=== PATIENT | male | born 1950 | race Caucasian/White ===

== ENCOUNTER 2021-09-14 09:33 | Emergency (ER) | payer OTHER, MEDICARE, SELFPAY ==
[2021-09-14 09:46] VITALS: BP 131/76; PULSE 82; RESP 18; TEMP 36.6; O2SAT 95; BMI 25.3
[2021-09-14 09:51] VITALS: BP 124/80; O2SAT 95
--- NOTE | 2021-09-14 10:49 | ED_ITS ---
HPI - Wound/Laceration General: Chief Complaint: Wound/Laceration Stated Complaint: Hand injury Time Seen by Provider: 09/14/21 10:19 Source: patient Mode of arrival: ambulatory Limitations: no limitations History of Present Illness: Patient is a 71-year-old male who presents to ED today with multiple lacerations to his right hand that he sustained around 11 PM yesterday evening. Patient states he had too much whiskey and states he fell and grabbed onto a 2 x 4 to catch his fall and sustained multiple lacerations to the palmar aspect of his right hand. [facility] seen [facility] and states they give him a tetanus shot and sent him to the ED for further evaluation. Patient has no other injuries other than the lacerations to his right hand. Onset (ago): day(s) (yesterday) Extremity Location: Right: wrist Place: home Patient tetanus UTD: Yes Context: accidental Associated symptoms: Reports no associated symptoms; Denies chills or fever(s) Review of Systems Const: Denies: fever(s), chills, body aches, fatigue or malaise Musc: Reports: extremity pain (R hand) Skin/Breast: Reports: other (lacerations R hand) Neuro: Denies: numbness in extremities, weakness in extremities or sensory changes Physical Exam Const: COMMON NORMALS: no acute distress, average body habitus, patient oriented x3, no limitations, healthy appearing, alert and well nourished Extremity: GENERAL: Yes normal exam except as noted RIGHT UPPER EXTREMITY: Yes hand & digits (see below) OTHER: pt has lacerations to the palmar 4th and 5th PIP joints and a laceration o verlying the palmar 2nd MCP/metacarapal head region Hand Right Front: 1. 2. 3. 4. lacerations; all without tendon involvement; all digits NV intact with normal strength against resistance in all [place] Neuro: COMMON NORMALS: patient oriented x3 SENSORIUM/ORIENTATION: Yes alert Procedures Laceration Laceration 1: Site: hand Side (If applicable): right (R 4th finger) Size (cm): 1.5 Description: linear Depth: simple, single layer Local Anesthetic: lidocaine 1% Amount of anesthesia used (mL): 0.5 Pre-repair: wound explored and irrigated extensively Skin layer closed with: nylon Size (cm): 4-0 Number of sutures: 2 Technique: simple, interrupted Laceration 2: Site: hand Side (If applicable): right Size (cm): 1.0 Description: flap and irregular Depth: simple, single layer Local Anesthetic: lidocaine 1% Amount of anesthesia used (mL): 1.0 Pre-repair: wound explored and irrigated extensively Skin layer closed with: nylon Size (cm): 4-0 Number of sutures: 2 Technique: simple, interrupted Course Vital Signs: Vital signs: Vital Signs Temperature 97.9 F 09/14/21 12:15 Pulse Rate 81 09/14/21 12:15 Respiratory Rate 14 09/14/21 12:15 Blood Pressure 119/82 09/14/21 12:15 Pulse Oximetry 96 09/14/21 12:15 MDM - Wound/Laceration Medical Decision Making Wounds were approximately 12 hours old and therefore were soaked in Betadine and irrigated extensively. One of the wounds was left open as it was not gaping and should heal fine on its own. The other 2 were very loosely approximated with 2 sutures. Strict return to ED precautions given in regards to infection. Patient will be placed on antibiotics. Lab Data Radiology Impressions Hand X-Ray 09/14/21 10:49 IMPRESSION: 1. No fracture or dislocation. Degenerative changes. Discharge Plan Discharge Patient Disposition: Home Clinical Impression: Laceration of multiple sites of right hand and fingers Condition: Stable Prescriptions: New cephalexin 500 mg capsule 500 mg PO Q6H 7 Days Qty: 28 0RF Discharge Orders: Discharge ED (Routine); Ordered 09/14/21 Ordered By: Juliane Pulido Patient Instructions: Laceration (ED), Finger Laceration (ED) Activity Restrictions/Additional Instructions: Keep wound/laceration clean with warm soap and water twice daily. Monitor for signs of infection such as redness, swelling, increased pain, or drainage. Please seek medical re-evaluation if these occur. If you received sutures today these will need to be removed (unless you were told by the provider that they are absorbable). The provider should have discussed with you the length of time until removal-7 DAYS. You may return to the emergency department for this service. If your wound was closed with Steri-Strips or glue/adhesive these will fall off within the next week or so. Coding Level of Care Code ED Patient Accounts Coordinator for [facility] Fwd Exam Expanded Problem Focused
--- NOTE | 2021-09-14 10:49 | XR_ITS ---
WS: [id number] Exam: XR hand RT min 3V* [id number] Date/Time of Exam: 09/14/2021 10:52 AM Reason For Exam: lacerations/injury No acute fracture or dislocation. Degenerative changes of the IP and MP joints. No soft tissue foreig n bodies are seen. XR/XR hand RT min 3V* [id number] IMPRESSION: 1. No fracture or dislocation. Degenerative changes.
[2021-09-14 12:11] VITALS: BP 119/82; PULSE 81; RESP 13; TEMP 36.6; O2SAT 96
[2021-09-14 12:15] VITALS: BP 119/82; PULSE 81; RESP 14; TEMP 36.6; O2SAT 96
== END 2021-09-14 12:05 | disposition home or self-care (01) ==
PROVIDERS: Emergency Provider Physician Assistant
DX: S61.216A Laceration without foreign body of right little finger without damage to nail, initial encounter (principal); S61.214A Laceration without foreign body of right ring finger without damage to nail, initial encounter; W19.XXXA Unspecified fall, initial encounter
CPT/HCPCS: 12001; 73130; 99283

== ENCOUNTER 2022-11-03 10:10 | Outpatient (CLI) | payer OTHER, SELFPAY ==
--- NOTE | 2022-11-03 10:32 | MR_ITS ---
WS: [id number] MRI BRAIN WITH HIGH-RESOLUTION IMAGING THROUGH THE INTERNAL AUDITORY CANALS WITHOUT AND WITH CONTRAST HISTORY: DIZZINESS, GIDDINESS COMPARISON: None available. TECHNIQUE: Multiplanar, multisequence imaging is performed through the brain. Additional 3 mm imaging performed in multiple planes through the internal auditory canal. Postcontrast imaging with 14 ml's of MultiHance. No acute intracranial hemorrhage, midline shift, edema or mass effect. Normal diffusion imaging. Very minimal cerebral atrophy and small vessel ischemic disease. No prior i nfarct. No lacunar infarct. Ventricles and extra-axial spaces are normal. No inferior displacement of cerebellar tonsils. Clivus and pituitary gland are normal. Internal and external auditory canals: Unremarkable. Cranial nerves VII and VIII complexes: Unremarkable. No enhancement or mass. Cerebellopontine angles: Normal. Paranasal sinuses: Normal. Mastoid air cells: Normal. Calvarium and scalp: Normal. Visualized [place] and dural venous sinuses demonstrate no abnormality. MR/MR iac's wo/w con* [id number] IMPRESSION: Normal MRI IACs. Very mild cerebral atrophy and small vessel ischemic disease.
[2022-11-03] MEDS: gadobenate dimeglumine 20 mL vial IV (11:58)
== END 2022-11-03 10:11 | disposition home or self-care (01) ==
LOC: RAD 10:12
PROVIDERS: PCP Emergency Medicine Emergency Medical Services; Visit Provider Otolaryngology
DX: R42 Dizziness and giddiness (principal); I67.89 Other cerebrovascular disease
CPT/HCPCS: 70553; A9577